=== PATIENT | female | born 1970 | race Caucasian/White ===

== ENCOUNTER 2017-02-24 09:15 | Emergency (ER) | payer OTHER ==
[~2017-02-24] VITALS: Ht 165.1 cm; Wt 79.4 kg
--- NOTE | 2017-02-24 09:23 | NUR ---
Pt placed in bed 7, Dr Marcos is at bedside examining patient.
[2017-02-24] MEDS ORDERED: PANTOPRAZOLE SODIUM 40 MG TAB PO ONE (09:30)
[2017-02-24] MEDS ORDERED: MAG-AL HYDROX/SIMETH 30 ML UDC PO ONE (09:30)
[2017-02-24 09:31] VITALS: BP_SYST 145
--- NOTE | 2017-02-24 09:54 | NUR ---
Medication was given to pt, tolerated it well. No noted adverse reaction, will continue to monitor
[2017-02-24 10:01] LABS: BASOPHILS % (AUTO) 0.6 % (0.0-2.0); EOSINOPHILS # (AUTO) 0.1 K/uL (0.0-0.4); EOSINOPHILS % (AUTO) 1.5 % (0.0-4.0); HEMATOCRIT 43.2 % (36-48); HEMOGLOBIN 14.4 g/dL (12.0-16.0); LYMPHOCYTES # (AUTO) 1.7 K/uL (1.0-5.5); LYMPHOCYTES % (AUTO) 23.8 % (20.5-51.5); MEAN CORPUSCULAR HEMOGLOBIN 29 pg (27-31); MEAN CORPUSCULAR HGB CONC 33 % (32-36); MEAN CORPUSCULAR VOLUME 87 fL (79.0-98.0); MONOCYTES # (AUTO) 0.4 K/uL (0.0-1.0); MONOCYTES % (AUTO) 6.1 % (1.7-9.3); NEUTROPHILS # (AUTO) 5.1 K/uL (1.8-7.7); PLATELET COUNT (AUTO) 486 K/uL (130-430); RED BLOOD CELL COUNT(AUTO) 4.96 MIL/uL (4.2-6.2); RED CELL DISTRIBUTION WIDTH 12.3 % (9.0-15.0); WHITE BLOOD COUNT (AUTO) 7.3 K/uL (4.8-10.8)
[2017-02-24 10:14] LABS: CALCIUM 9.7 mg/dL (8.4-11.0); CREATININE 0.6 mg/dL (0.55-1.30); POTASSIUM 3.8 mmol/L (3.5-5.1)
[2017-02-24 10:18] LABS: ALBUMIN 3.8 g/dL (3.4-4.8); TOTAL BILIRUBIN 0.7 mg/dL (0.0-1.0)
[2017-02-24 10:18] LABS: BILIRUBIN,URINE NEGATIVE (NEGATIVE); BLOOD, URINE NEGATIVE (NEGATIVE); CLARITY/URINE SL CLOUDY (CLEAR); COLOR,URINE YELLOW (YELLOW); GLUCOSE,URINE NEGATIVE (NEGATIVE); KETONES,URINE NEGATIVE (NEGATIVE); LEUKOCYTE ESTERASE ,URINE NEGATIVE (NEGATIVE); NITRITE, URINE NEGATIVE (NEGATIVE); PH,URINE 5.5 (5.0-8.0); PROTEIN URINE NEGATIVE (NEGATIVE)
--- NOTE | 2017-02-24 10:30 | NUR ---
Pt went to radiology in stable condition
[2017-02-24 10:40] LABS: PROTHROMBIN TIME 9.9 SECS (9.5-12.5)
--- NOTE | 2017-02-24 11:00 | NUR ---
Pt returned from radiology in stable condition
--- NOTE | 2017-02-24 12:00 | NUR ---
Pt is resting in bed with no noted distress or discomfort.
[2017-02-24] MEDS ORDERED: FLUO10CA65 PO (13:07)
[2017-02-24] MEDS ORDERED: METH5TAB4 PO (13:07)
--- NOTE | 2017-02-24 13:07 | NUR ---
Medication reconciliation completed with information provided by patient. Any prior medication reconciliation on file was reviewed and corrected.
--- NOTE | 2017-02-24 13:08 | NUR ---
US is at bedside.
[2017-02-24] MEDS ORDERED: NACL 0.9% 1,000 ML IV ONE (13:15)
[2017-02-24] MEDS ORDERED: KETOROLAC TROMETHAMINE 30 MG VIAL IVP ONE (13:15)
[2017-02-24] MEDS ORDERED: cefOXitin SODIUM 2 GM in D5W 100 ML IV ONE (13:30)
[2017-02-24] MEDS ORDERED: cefOXitin SODIUM 2 GM/VIAL (MEFOXIN) ONE (14:12)
--- NOTE | 2017-02-24 14:30 | NUR ---
Pt is resting in bed comfortably with no noted distress or discomfort.
--- NOTE | 2017-02-24 15:25 | NUR ---
Dr Cardona is here to examine pt at bedside.
--- NOTE | 2017-02-24 16:25 | NUR ---
Patient given written and verbal discharge instructions and verbalizes understanding. ER MD discussed with patient the results and treatment provided. Patient in stable condition. ID arm band removed. IV catheter removed intact and dressing applied, no active bleeding. Rx of tylenol given. Patient educated on pain management and to follow up with PMD. Pain Scale 0. Opportunity for questions provided and answered.
[2017-02-24 16:27] VITALS: BP_SYST 138
== END 2017-02-24 16:27 | disposition home or self-care (01) ==
LOC: SED 09:15
DX: K80.70 Calculus of gallbladder and bile duct without cholecystitis without obstruction (principal); I10 Essential (primary) hypertension
CPT/HCPCS: 36415; 74176; 76700; 80053; 81003; 81025; 83690; 84484; 85025; 85610; 85730; 87040; 93005; 96365; 96375; 99285; J0694; J1885; J7030; J7060